=== PATIENT | male | born 1980 | race American Indian/Alaskan Native ===

== ENCOUNTER 2019-11-26 18:34 | Emergency (ER) | payer SELFPAY ==
[2019-11-26] MEDS ORDERED: Ketorolac 30 MG/ML SDV IVPUSH ONE (19:31)
[2019-11-26] MEDS ORDERED: diphenhydrAMINE 50 MG/ML SDV IVPUSH ONE (19:32)
[2019-11-26] MEDS ORDERED: Ondansetron 4 MG/2 ML SDV IVPUSH ONE (19:33)
[2019-11-26] MEDS ORDERED: methylPREDNISolone Sodium Succinate 125 MG/2 ML SDV IVPUSH ONE (19:42)
[2019-11-26] MEDS ORDERED: Sodium Chloride 0.9% 1,000 ML IV SCH (19:45)
--- NOTE | 2019-11-26 20:12 | CRLCT ---
INDICATION: Worst headache ever TECHNIQUE: CT head without contrast. COMPARISON: None available FINDINGS: The ventricles and sulci are within normal limits for the patient`s age. There is no mass effect or midline shift. There is apparent borderline tonsillar ectopia. There is no loss of bruce-white differentiation. There is a low-density focus in the inferior right basal ganglia which could represent a dilated perivascular space. There is no evidence of an acute intracranial hemorrhage. No acute calvarial fracture is seen. The visualized paranasal sinuses and mastoid air cells are clear. The visualized orbits are within normal limits. IMPRESSION: No evidence of an acute intracranial hemorrhage, mass effect or loss of bruce-white differentiation. A low-density focus in the inferior right basal ganglia which could represent a dilated perivascular space. A chronic lacunar infarct is less likely in a patient of this age. Dictated by Tito Soto MD @ 11/26/2019 8:09:42 PM Please note that all CT scans at this facility use dose modulation, iterative reconstruction, and/or weight-based dosing when appropriate to reduce radiation dose to as low as reasonably achievable. Dictated by: Tito Soto MD @ 11/26/2019 20:09:49 (Electronically Signed)
[2019-11-26] MEDS ORDERED: HYDROmorphone 1 MG/ML Syringe IVPUSH ONE (20:31)
--- NOTE | 2019-11-26 20:40 | EDM.PDOC ---
ED HPI GENERAL MEDICAL PROBLEM - General Chief Complaint: Headache Stated Complaint: THROWING UP,MIGRAINE Time Seen by Provider: 11/26/19 18:41 Source of Information: Reports: Patient, Family (SO and another female relative) History Limitations: Reports: No Limitations - History of Present Illness INITIAL COMMENTS - FREE TEXT/NARRATIVE: chief complaint: Migraine headache This is a 39 year old male present to the ER with and [id number]. reports headache started at 04:30 am today with nausea, vomiting and light sensitive. has had migraine headaches since age 16 years but this headache is the worse ever. denies any head injury in the past year, denies any drugs or alcohol. denies any current illness or other family members with illness. 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, NSAIDS Middle Frontal Headache Pain Score (Numeric/FACES): 8 - Related Data Allergies Allergy/AdvReac Type Severity Reaction Status Date / Time tramadol Allergy Vomiting Verified 11/26/19 18:59 Home Meds: Home Meds NK [No Known Home Meds] 11/26/19 [History] Past Medical History Genitourinary History: Reports: Renal Calculus Neurological History: Reports: Concussion Psychiatric History: Reports: Anxiety, Depression, Mood Swings - Infectious Disease History Infectious Disease History: Reports: Chicken Pox, Shingles Social & Family History - Family History Family Medical History: Noncontributory - Tobacco Use Smoking Status *Q: Current Every Day Smoker Years of Tobacco use: 20 Packs/Tins Daily: 0.5 - Caffeine Use Caffeine Use: Reports: Soda - Recreational Drug Use Recreational Drug Use: Yes Drug Use in Last 12 Months: Yes Recreational Drug Type: Reports: Marijuana/Hashish Recreational Drug Use Frequency: Daily - Living Situation & Occupation Living situation: Reports: (lives with in [place], [place].) ED ROS GENERAL - Review of Systems Review Of Systems: See Below Constitutional: Reports: Other (headache ) HEENT: Reports: Eye Pain (right eye throbbing and painful from headache) Respiratory: Reports: No Symptoms Cardiovascular: Reports: No Symptoms Endocrine: Reports: No Symptoms GI/Abdominal: Reports: Nausea, Vomiting : Reports: No Symptoms Musculoskeletal: Reports: No Symptoms Skin: Reports: No Symptoms Neurological: Reports: Headache Psychiatric: Reports: No Symptoms Hematologic/Lymphatic: Reports: No Symptoms Immunologic: Reports: No Symptoms ED EXAM, GENERAL - Physical Exam Exam: See Below Exam Limited By: No Limitations General Appearance: Alert, WD/WN, Severe Distress (laying curled up on the ER stretcher with eyes covered.), Thin Eye Exam: Bilateral Eye: EOMI, Normal Inspection, PERRL Ears: Normal External Exam, Normal Canal, Hearing Grossly Normal, Normal TMs Ear Exam: Bilateral Ear: Auricle Normal, Canal Normal, TM normal Nose: Normal Inspection, Normal Mucosa, No Blood Throat/Mouth: Normal Inspection, Normal Lips, Normal Teeth, Normal Gums, Normal Oropharynx, Normal Voice, No Airway Compromise Head: Atraumatic, Normocephalic Neck: Normal Inspection, Supple, Non-Tender, Full Range of Motion Respiratory/Chest: No Respiratory Distress, Lungs Clear, Normal Breath Sounds, No Accessory Muscle Use, Chest Non-Tender Cardiovascular: Normal Peripheral Pulses, Regular Rate, Rhythm, No Edema, No Gallop, No JVD, No Murmur, No Rub Peripheral Pulses: 2+: Radial (L), Radial (R) GI/Abdominal: Normal Bowel Sounds, Soft, Non-Tender, No Organomegaly, No Distention, No Abnormal Bruit, No Mass, Pelvis Stable (Male) Exam: No Hernia Back Exam: Normal Inspection, Full Range of Motion Extremities: Normal Inspection, Normal Range of Motion, Non-Tender, Normal Capillary Refill, No Pedal Edema Neurological: Alert, Oriented, CN II-XII Intact, Normal Cognition, No Motor/ Sensory Deficits Psychiatric: Normal Affect, Normal Mood Skin Exam: Warm, Dry, Intact, Normal Color, No Rash Course - Vital Signs Last Recorded V/S: Last Vital Signs Temp 35.9 C L 11/26/19 18:59 Pulse 77 11/26/19 20:35 Resp 16 11/26/19 20:35 BP 115/69 11/26/19 20:35 Pulse Ox 96 11/26/19 20:35 - Orders/Labs/Meds Orders: Active Orders 24 hr Category Date Time Status CULTURE STREP A CONFIRMATION [] Stat Lab 11/26/19 19:07 Results STREP SCRN A RAPID W CULT CONF [] Stat Lab 11/26/19 19:07 Results Sodium Chloride 0.9% [Normal Saline] 1,000 ml Med 11/26/19 19:45 Active IV ASDIRECTED Medication Orders Sodium Chloride (Normal Saline) 1,000 mls @ 999 mls/hr IV ASDIRECTED CAROL Last Admin: 11/26/19 19:56 Dose: 999 mls/hr Labs: Laboratory Tests 11/26/19 11/26/19 Range/Units 19:53 19:53 WBC 11.9 H (4.5-11.0) K/uL RBC 5.16 (4.30-5.90) M/uL Hgb 15.6 H (12.0-15.0) g/dL Hct 46.3 (40.0-54.0) % MCV 90 (80-98) fL MCH 30 (27-31) pg MCHC 34 (32-36) % Plt Count 424 H (150-400) K/uL Neut % (Auto) 62 (36-66) % Lymph % (Auto) 21 L (24-44) % [place] % (Auto) 16 H (2-6) % Eos % (Auto) 1 L (2-4) % Baso % (Auto) 1 (0-1) % Sodium 141 (140-148) mmol/L Potassium 4.1 (3.6-5.2) mmol/L Chloride 105 (100-108) mmol/L Carbon Dioxide 25 (21-32) mmol/L Anion Gap 11.4 (5.0-14.0) mmol/L BUN 14 (7-18) mg/dL Creatinine 0.9 (0.8-1.3) mg/dL Est Cr Clr Drug Dosing 101.41 mL/min Estimated GFR (MDRD) > 60 (>60) Glucose 102 (74-106) mg/dL Calcium 8.7 (8.5-10.1) mg/dL Amylase 45 (25-115) U/L Meds: Medications Generic Name Dose Route Start Last Admin Trade Name Freq PRN Reason Stop Dose Admin Sodium Chloride 1,000 mls @ 999 mls/hr 11/26/19 19:45 11/26/19 19:56 Normal Saline IV 999 mls/hr ASDIRECTED CAROL Administration Discontinued Medications Generic Name Dose Route Start Last Admin Trade Name [place] PRN Reason Stop Dose Admin Diphenhydramine HCl 25 mg 11/26/19 19:32 11/26/19 20:04 Benadryl IVPUSH 11/26/19 19:33 25 mg ONETIME ONE Administration Hydromorphone HCl 1 mg 11/26/19 20:31 11/26/19 20:39 Dilaudid IVPUSH 11/26/19 20:32 1 mg ONETIME ONE Administration Ketorolac Tromethamine 30 mg 11/26/19 19:31 11/26/19 20:01 Toradol IVPUSH 11/26/19 19:32 30 mg ONETIME ONE Administration Methylprednisolone Sodium Succinate 125 mg 11/26/19 19:42 11/26/19 20:02 Solu-Medrol IVPUSH 11/26/19 19:43 125 mg ONETIME ONE Administration Ondansetron HCl 4 mg 11/26/19 19:33 11/26/19 19:59 Zofran IVPUSH 11/26/19 19:34 4 mg ONETIME ONE Administration - Re-Assessments/Exams Free Text/Narrative Re-Assessment/Exam: 11/26/[address] to rule out acute process all negative IV fluids NS 999ml/hr IV meds.: IV Toradol 30 mg., IV Zofran 4 mg, IV Solu-medrol 125mg., IV Benadryl 25 mg. Mr. Mensah did get some relief of symptoms and appeared more comfortable. But headache still continues then given IV Dilaudid 1 mg., this resolved the symptoms. discharge to home. advise to return to ER if not improved or symptoms return. left with his and [id number]. copy of CT report given to patient. Departure - Departure Time of Disposition: 20:44 Disposition: Home, Self-Care 01 Condition: Good Clinical Impression: Migraine - Discharge Information *PRESCRIPTION DRUG MONITORING PROGRAM REVIEWED*: Yes *COPY OF PRESCRIPTION DRUG MONITORING REPORT IN PATIENT GARRETT: Not Applicable Instructions: Migraine Headache, [id number] Referrals: PCP,None [Primary Care Provider] - Forms: ED Department Discharge Care Plan Goals: Migraine Headaches -push fluids -rest -follow up in [facility] for recheck -return to ER for any return of symptoms or any concerns. copy of Head CT given to patient for home medical records Sepsis Event Note - Evaluation Sepsis Screening Result: No Definite Risk - Focused Exam Vital Signs: Vital Signs Temp Pulse Resp BP Pulse Ox 11/26/19 20:35 77 16 115/69 96 11/26/19 19:30 59 L 121/80 11/26/19 18:59 35.9 C L 62 16 111/68 93 L 11/26/19 18:47 35.9 C L 62 16 111/68 93 L Date Exam was Performed: 11/26/19 Time Exam was Performed: 21:00 - Problem List & Annotations (1) Migraine SNOMED Code(s): 67621476 Code(s): G43.909 - MIGRAINE, UNSP, NOT INTRACTABLE, WITHOUT STATUS MIGRAINOSUS Status: Acute Priority: High Current Visit: Yes - Problem List Review Problem List Initiated/Reviewed/Updated: Yes - My Orders Last 24 Hours: My Active Orders 11/26/19 19:07 CULTURE STREP A CONFIRMATION [RM] Stat STREP SCRN A RAPID W CULT CONF [RM] Stat 11/26/19 19:45 Sodium Chloride 0.9% [Normal Saline] 1,000 ml IV ASDIRECTED - Assessment/Plan Last 24 Hours: My Active Orders 11/26/19 19:07 CULTURE STREP A CONFIRMATION [RM] Stat STREP SCRN A RAPID W CULT CONF [RM] Stat 11/26/19 19:45 Sodium Chloride 0.9% [Normal Saline] 1,000 ml IV ASDIRECTED Assessment:: Migraine Headaches -push fluids -rest -follow up in [facility] Care [facility] for recheck -return to ER for any return of symptoms or any concerns. copy of Head CT given to patient for home medical records
== END 2019-11-26 21:00 | disposition home or self-care (01) ==
LOC: EDBD 18:34 → JP.ED 18:34
DX: G43.909 Migraine, unspecified, not intractable, without status migrainosus (principal); F17.210 Nicotine dependence, cigarettes, uncomplicated; Z88.5 Allergy status to narcotic agent
CPT/HCPCS: 36415; 70450; 80048; 82150; 85025; 87081; 87804; 87880; 96361; 96374; 96375; 99284; J1170; J1200; J1885; J2405; J2930; J7030